=== PATIENT | female | born 1940 | race Caucasian/White ===

== ENCOUNTER 2020-02-01 18:32 | Emergency (ER) | payer OTHER ==
[~2020-02-01] VITALS: Ht 157.5 cm; Wt 81.6 kg
[2020-02-01] MEDS ORDERED: BACTRIM DS TAB1 EACH PO (22:22)
== END 2020-02-02 01:32 | disposition home or self-care (01) ==
LOC: ER 18:32
DX: L02.216 Cutaneous abscess of umbilicus (principal)